=== PATIENT | male | born 1945 | race Caucasian/White ===

== ENCOUNTER → 2016-10-15 | Outpatient (CLI) | payer OTHER ==
--- NOTE | 2016-10-15 13:36 | US ---
Bilateral Duplex/Doppler Carotid Sonography History: Hyperlipidemia, diabetes, hypertension. Comparison: Carotid ultrasound of September 20, 2014. Technique: The cervical portions of the carotid and vertebral arteries were imaged and interrogated by color and pulsed Duplex/Doppler. Spectral analysis was performed. Findings Right Carotid: Right CCA peak systolic velocity = 47 cm/sec Right ECA peak systolic velocity = 51 cm/sec Right ICA peak systolic velocity = 79 cm/sec Right ICA/CCA systolic velocity ratio = 1.7 Velocities correlate to less than 50% diameter stenosis of the origin of the right internal carotid a rtery with respect to the normal distal internal carotid artery. There is slight increase in moderate calcified plaque involving the right carotid bulb and proximal right internal carotid artery. Left Carotid: Left CCA peak systolic velocity = 46 cm/sec Left ECA peak systolic velocity = 124 cm/sec Left ICA peak systolic velocity = 135 cm/sec (previously 132 cm/sec) Left ICA/CCA systolic velocity ratio = 3.0 Velocities correlate to 50 to 69% diameter stenosis of the origin of the left internal carotid artery with respect to the normal distal internal carotid artery. There appears to be slight increase in ex tensive calcified plaque involving the left carotid bulb and proximal left internal carotid artery. Vertebral Arteries: Antegrade flow is shown by pulsed Doppler of each vertebral artery. Impression: 1. Mild stenosis in the left internal carotid artery (50 to 69%), likely at the lower limit of this r niall. 2. No hemodynamically significant stenosis in the right internal carotid artery by systolic velocity criteria. 3. Moderate to severe carotid atherosclerosis, left greater than right, increased since the compariso n. Measurement of carotid stenosis is based on velocity parameters that correlate the residual internal carotid diameter with [place] Symptomatic Carotid Endarterectomy Trial (NASCET) based stenosis levels.
== END ==
LOC: BMCIMAGING 10:30
PROVIDERS: ATTEND Internal Medicine Interventional Cardiology
DX: I65.23 Occlusion and stenosis of bilateral carotid arteries (principal); E78.5 Hyperlipidemia, unspecified; I10 Essential (primary) hypertension; E11.9 Type 2 diabetes mellitus without complications